=== PATIENT | male | born 1960 | race Hispanic/Latino ===

== ENCOUNTER 2019-08-29 01:35 | Emergency (ER) | payer OTHER ==
[2019-08-29] MEDS ORDERED: ACETAMINOPHEN 325 MG TAB ONE (02:41)
[2019-08-29] MEDS ORDERED: ORPHENADRINE CITRATE 30 MG/ML ML ONE (04:10)
[2019-08-29] MEDS ORDERED: IBUPROFEN 200 MG TAB ONE (04:51)
== END 2019-08-29 05:22 ==
LOC: EDH 01:35
DX: S40.011A Contusion of right shoulder, initial encounter (principal); M54.2 Cervicalgia; M54.5 Low back pain; Z88.8 Allergy status to other drugs, medicaments and biological substances; X58.XXXA Exposure to other specified factors, initial encounter; Y93.89 Activity, other specified; Y92.89 Other specified places as the place of occurrence of the external cause; Y99.8 Other external cause status
CPT/HCPCS: 72100; 72125; 73030; 96372; 99284; J2360

== ENCOUNTER → 2023-03-28 | Outpatient (CLI) | payer MEDICAID ==
[~2023-03-28] MED LIST: GADOTERATE MEGLUMINE 10 MMOL/20 ML VIAL IV ONE
== END | disposition home or self-care (01) ==
LOC: RAH 12:26
PROVIDERS: ATTEND Neuromusculoskeletal Medicine & OMM
DX: M50.122 Cervical disc disorder at C5-C6 level with radiculopathy (principal); M48.02 Spinal stenosis, cervical region
CPT/HCPCS: 72156; A9575

== ENCOUNTER → 2023-04-27 | Outpatient (CLI) | payer MEDICAID | END | disposition home or self-care (01) | LOC: RAH 09:28 | PROVIDERS: ATTEND Neuromusculoskeletal Medicine & OMM | DX: M47.812 Spondylosis without myelopathy or radiculopathy, cervical region (principal); M50.30 Other cervical disc degeneration, unspecified cervical region | CPT/HCPCS: 72050 ==